=== PATIENT | female | born 1930 | race Caucasian/White ===

== ENCOUNTER 2017-07-31 02:52 | Emergency (ER) | payer MEDICARE ==
[2017-07-31 05:35] LABS: #Eosinphils 0.1 thou/uL (0.0-0.7); #Lymphocytes 0.6 thou/uL (1.20-3.40); #Monocytes 0.6 thou/uL (0.11-0.59); #Neutrophils 4.4 thou/uL (1.40-6.50); %Basophils 0.2 % (0.0-1.0); %Eosinophils 1.4 % (0.0-10.0); %Lymphocytes 10.8 % (21.0-51.0); %Monocytes 10.7 % (0.0-10.0); Hematocrit 36.7 % (36.0-47.0); Mean Platelet Volume 6.8 fL (7.4-10.4); Red Blood Cell (RBC) Count 4.06 mill/uL (4.20-5.40); White Blood Cell (WBC) Count 5.8 thou/uL (4.8-10.8)
[2017-07-31 05:51] LABS: Anion Gap 11 mmol/L (10-20); BUN (Urea Nitrogen) 15 mg/dL (9.8-20.1); Calc. Creatinine Clearance 0 mL/min (70-130); Calcium 8.6 mg/dL (7.8-10.44); Carbon Dioxide 21 mmol/L (23-31); Chloride 106 mmol/L (98-107); Estimated GFR-MDRD 60
--- NOTE | 2017-08-20 13:49 | EKG ---
Test Reason : SYNCOPE Blood Pressure : / mmHG Vent. Rate : 084 BPM Atrial Rate : 084 BPM P-R Int : 164 ms QRS Dur : 098 ms QT Int : 370 ms P-R-T Axes : 013 -22 057 degrees QTc Int : 437 ms Normal sinus rhythm Moderate voltage criteria for LVH, may be normal variant Borderline ECG Confirmed by JUSTIN CHUNG ([id number]), magazine editor HEATHER KEITA ([id number]) on 08/20/2017 1:48:58 PM Referred By: Confirmed By:JUSTIN CHUNG
== END 2017-07-31 06:10 | disposition home or self-care (01) ==
LOC: ERS 02:52
DX: R11.0 Nausea (principal); R19.7 Diarrhea, unspecified; I48.91 Unspecified atrial fibrillation; E03.9 Hypothyroidism, unspecified; K21.9 Gastro-esophageal reflux disease without esophagitis; I10 Essential (primary) hypertension; F41.9 Anxiety disorder, unspecified; F32.9 Major depressive disorder, single episode, unspecified; Z79.899 Other long term (current) drug therapy; Z79.82 Long term (current) use of aspirin
CPT/HCPCS: 36415; 80048; 85025; 93005

== ENCOUNTER 2018-03-25 09:53 | Observation (INO) | payer MEDICARE ==
[2018-03-25 10:24] LABS: #Lymphocytes 1.3 thou/uL (1.20-3.40); #Monocytes 0.4 thou/uL (0.11-0.59); #Neutrophils 4.3 thou/uL (1.40-6.50); %Basophils 0.5 % (0.0-1.0); %Eosinophils 0.3 % (0.0-10.0); %Lymphocytes 21.3 % (21.0-51.0); %Monocytes 7.3 % (0.0-10.0); %Neutrophils 70.6 % (42.0-75.0); Hemoglobin 11.6 g/dL (12.0-16.0); Mean Corpuscular HGB CONC 32.8 g/dL (32.0-36.0); Mean Corpuscular Hemoglobin 28.8 pg (27.0-31.0); Mean Corpuscular Volume 87.8 fL (78.0-98.0); Mean Platelet Volume 6.8 fL (7.4-10.4); Platelet Count 262 thou/uL (130-400); Red Blood Cell (RBC) Count 4.03 mill/uL (4.20-5.40)
[2018-03-25 10:44] LABS: ALT (SGPT) 7 U/L (8-55); AST (SGOT) 15 U/L (5-34); Alkaline Phosphatase 83 U/L (40-150); Anion Gap 16 mmol/L (10-20); BUN (Urea Nitrogen) 9 mg/dL (9.8-20.1); Bilirubin, Total 0.6 mg/dL (0.2-1.2); Calc. Creatinine Clearance 0 mL/min (70-130); Calcium 9.7 mg/dL (7.8-10.44); Carbon Dioxide 22 mmol/L (23-31); Chloride 106 mmol/L (98-107); Estimated GFR-MDRD 64; Globulin 3.3 g/dL (2.4-3.5); Glucose 112 mg/dL (83-110); Potassium 3.5 mmol/L (3.5-5.1); Protein, Total 7.3 g/dL (6.0-8.3); Sodium 140 mmol/L (136-145)
--- NOTE | 2018-03-25 10:46 | RAD ---
RADIOGRAPH CHEST 1 VIEW: HISTORY: 87-year-old female with hypertension. FINDINGS: There are no air space densities, pulmonary edema, pneumothorax, or cardiomegaly. The lateral costop hrenic angles are sharp. There is a cluster of surgical clips at the left medial cervicothoracic junction. Thin layer of calci fication over the left hemidiaphragm. IMPRESSION: No acute cardiopulmonary findings. andria [] POS: KORIN
[2018-03-25 10:48] LABS: CKMB 0.7 ng/mL (0-6.6); Troponin I Less than 0.010 ng/mL (< 0.028)
[2018-03-25] MEDS ORDERED: Acetaminophen 325 MG TAB PO PRN (13:36)
[2018-03-25] MEDS ORDERED: Eucerin (Mineral Oil/Petrolatum,White) 30 gm Jar TOP PRN (13:36)
[2018-03-25] MEDS ORDERED: Artificial Tear Sol 15 ML BOT EA EYE PRN (13:36)
[2018-03-25] MEDS ORDERED: Senokot 8.6 MG TAB PO PRN (13:36)
[2018-03-25] MEDS ORDERED: Diabetic Tussin 200 MG/10 ML UDCUP PO PRN (13:36)
[2018-03-25] MEDS ORDERED: Milk Of Magnesia 30 ML UDCUP PO PRN (13:36)
[2018-03-25] MEDS ORDERED: Sodium Chloride 0.65% Nasal 44 ML BOT EA NARE PRN (13:36)
[2018-03-25] MEDS ORDERED: hydrALAZINE 20 MG/ML VIAL SLOW IVP PRN (13:36)
[2018-03-25] MEDS ORDERED: Loratadine 10 MG TAB PO PRN (13:36)
[2018-03-25] MEDS ORDERED: Ondansetron HCl/PF 4 MG/2 ML Vial IVP PRN (13:36)
[2018-03-25] MEDS ORDERED: HYDROcodone/Acetaminophen 5/325 mg Tablet PO PRN (13:36)
[2018-03-25] MEDS ORDERED: Ondansetron ODT 4 MG TAB PO PRN (13:36)
[2018-03-25] MEDS ORDERED: Zolpidem Tartrate 5 MG TAB PO PRN (13:36)
[2018-03-25] MEDS ORDERED: Chloraseptic Spray 180 ml Bottle PO PRN (13:36)
[2018-03-25] MEDS ORDERED: Mag-Al 1200 mg/1200 mg/30 ML UDCUP PO PRN (13:36)
[2018-03-25] MEDS ORDERED: Nitroglycerin 0.4 MG TAB (25 Tab Bottle) SL PRN (13:36)
[2018-03-25] MEDS ORDERED: Loperamide HCl 2 MG CAP PO PRN (13:36)
[2018-03-25] MEDS ORDERED: ALPRAZolam 0.25 MG TAB PO PRN (13:55)
[2018-03-25] MEDS ORDERED: NIFEdipine XL 30 MG TAB PO SCH (14:00)
--- NOTE | 2018-03-25 14:31 | HP ---
PRIMARY CARE PHYSICIAN: [facility] call admission. REASON FOR ADMISSION: Chest pain and hypertensive urgency. HISTORY OF PRESENT ILLNESS: This is an 87-year-old female, who has underlying history of hypertensio n, GERD, hypothyroidism, coronary artery disease, who lives alone at home. The patient was checking her blood pressure at home yesterday, which was very high. Last night, the patient's blood pressure was running in 200s. She took amlodipine and aspirin and after that she slept. This morning, when s he woke up, at that time her blood pressure was still very high. She took another couple of the baby aspirin and amlodipine, but that was not dropping her blood pressure and she was feeling chest press ure. She called her primary care physician, who advised her to go to emergency room for checkout. I n the emergency room when she presented, at that time her blood pressure was 174/73. She was chest p ain free. Her routine workup in the emergency room was unremarkable including CBC, BMP, and chest x- ray. Patient reports that she had negative cardiac stress test in 12/2017. Patient had, 20 years ag o, cardiac catheterization and 3 stents placed in [place] by her communications equipment operator. The patient was recen tly followed up with primary care physician as well as her communications equipment operator and everything was fine. Precious coburn's blood pressure was lately running high. Patient reports that she is also anxious and she took anxiety medicine that did not change her blood pressure. She denies any associated diaphoresis, but she was feeling nausea and headache. She denies any focal motor or sensory symptoms. She was feeli ng headache with high blood pressure. She denies any UTI symptoms. She denies any constipation, les rrhea, melena, or hematochezia. REVIEW OF SYSTEMS: The following complete review of systems was negative, unless otherwise mentioned in the HPI or below: Constitutional: Weight loss or gain, ability to conduct usual activities. Sk in: Rash, itching. Eyes: Double vision, pain. ENT/Mouth: Nose bleeding, neck stiffness, pain, te nderness. Cardiovascular: Palpitations, dyspnea on exertion, orthopnea. Respiratory: Shortness of breath, wheezing, cough, hemoptysis, fever, or night sweats. Gastrointestinal: Poor appetite, abdo rogers pain, heartburn, nausea, vomiting, constipation, or diarrhea. Genitourinary: Urgency, frequen cy, dysuria, nocturia. Musculoskeletal: Pain, swelling. Neurologic/Psychiatric: Anxiety, depressi on. Allergy/Immunologic: Skin rash, bleeding tendency. Please see my HPI for pertinent positive an d negative. All other review of system reviewed and negative except as mentioned in the HPI. PAST MEDICAL HISTORY: Coronary artery disease with stent; hypertension; dyslipidemia; hypothyroidism ; gastroesophageal reflux disease; history of bladder cancer, treated with surgery. PAST SURGICAL HISTORY: Throat surgery after injury, hysterectomy, left leg surgery, bladder surgery x3, tonsillectomy. PAST PSYCHIATRIC HISTORY: Anxiety and depression. SOCIAL HISTORY: Patient lives alone by herself in [place], [place]. No history of tobacco, alcohol , or illicit drug abuse. FAMILY HISTORY: No strong family history of premature coronary artery disease, stroke, or cancer. EMERGENCY ROOM COURSE: The patient is given aspirin 325 mg. ALLERGIES: IODINE, SULFA, MILK PRODUCT. CURRENT HOME MEDICATIONS: Toprol-XL 12.5 mg twice daily, omeprazole 20 mg p.o. daily, Synthroid 50 m cg p.o. daily, aspirin 81 mg p.o. daily, Xanax 0.5 mg as needed, Bentyl 10 mg q.8 hourly p.r.n., Zofr an 4 mg q.6 hourly p.r.n., amlodipine 5 mg p.o. daily. PHYSICAL EXAMINATION: VITAL SIGNS: Blood pressure currently 163/92, pulse 69, respiratory rate 17, temperature 97.8, satur ation 98% on room air, weight is 63.9 kilograms. GENERAL: Patient is currently alert, oriented, in no acute distress. HEENT: Head: Normocephalic, atraumatic. Eyes: Pupils round, reactive to light. Extraocular muscl e intact. ENT: Oropharynx within normal limits. Moist mucous membranes. No oral lesion, no pharyn geal erythema, no exudate. NECK: Supple, no JVD, no thyromegaly, no carotid bruit, no jugular venous distention. LUNGS: Clear to auscultation without any rhonchi or rales. CARDIAC: S1 and S2, regular. No murmur, no gallop, no rub. ABDOMEN: Soft, bowel sounds present, nontender, nondistended. No organomegaly, no mass, no suprapub ic tenderness. BACK EXAMINATION: Unremarkable, no CVA tenderness. EXTREMITIES: Upper extremities, passive movement of all joints are normal. Lower extremities: No e berna. Good peripheral pulsation. SKIN: No skin rash. HEMATOLOGICAL SYSTEM: No lymphadenopathy. PSYCHIATRIC: Normal affect. NEUROLOGIC: Nonfocal examination. SIGNIFICANT LABORATORY DATA: CBC: WBC 6.0, hemoglobin 11.6, platelets 262. BMP: Sodium 140, potas sium 3.5, chloride 106, carbon dioxide 22, anion gap 16, BUN 9, creatinine 0.84, glucose 112, calcium 9.7. LFT: AST 15, ALT 7, alkaline phosphatase is 83, albumin 4.0. BNP is 36.3. Cardiac enzymes n egative. Chest x-ray, based on my review, no acute cardiopulmonary process. EKG, based on my review , normal sinus rhythm, LVH. ASSESSMENT AND PLAN: 1. Chest pressure, rule out acute coronary syndrome. The patient will be observed on telemetry floo r. We will do serial cardiac enzymes x3. She had negative stress test per patient in 12/2017 and dewayne johnson is not interested in going for another stress test. If her cardiac enzymes remain negative, then yasir johnson will consider discharging her home tomorrow. Most likely, chest pressure is explained by her uncon trolled hypertension or gastroesophageal reflux disease. We will continue with Protonix 40 mg p.o. d aily. 2. Hypertension, uncontrolled. We will change amlodipine to Procardia-XL 30 mg p.o. daily and we wi ll monitor blood pressure more frequently. We will continue metoprolol XL 25 mg p.o. daily. 3. Gastroesophageal reflux disease. We will continue Protonix 40 mg p.o. daily. 4. Hypothyroidism. We will continue Synthroid 50 mcg p.o. daily. 5. Anxiety and depression. We will use Xanax 0.25 mg p.o. q.i.d. p.r.n. 6. Deep venous thrombosis prophylaxis not needed. 7. Gastrointestinal prophylaxis, Protonix 40 mg p.o. daily. CODE STATUS: The patient is FULL CODE. Patient's daughter is surrogate decision maker. DISPOSITION PLAN: Within 24 hours, likely tomorrow.
[2018-03-25] MEDS: Nitroglycerin 2% Ointment 1 INCH/1 GM Packet TOP SCH (14:43)
[2018-03-25 17:54] LABS: Troponin I Less than 0.010 ng/mL (< 0.028)
[2018-03-25 20:36] LABS: Troponin I Less than 0.010 ng/mL (< 0.028)
[2018-03-25] MEDS ORDERED: Famotidine 20 MG TAB PO SCH (21:00)
[2018-03-26] MEDS: Nitroglycerin 2% Ointment 1 INCH/1 GM Packet TOP SCH ×2 (03:02→06:38)
[2018-03-26 05:41] LABS: Cardiac Risk 3.3 (Less than 4.5)
[2018-03-26] MEDS ORDERED: Levothyroxine Sodium 50 MCG TAB PO SCH (06:00)
[2018-03-26 07:51] VITALS: BP 142/68; TEMP 97.7
[2018-03-26] MEDS ORDERED: Aspirin 325 MG TAB PO SCH (09:00)
[2018-03-26] MEDS ORDERED: Pantoprazole 40 MG GRANULES PACKET PO SCH (09:00)
--- NOTE | 2018-03-26 11:00 | DIS ---
DATE OF ADMISSION: 03/25/2018 DATE OF DISCHARGE: 03/26/2018 PRIMARY CARE PHYSICIAN: [facility] call admission. Her primary care physician in [place], [place]. DISCHARGE DISPOSITION: Home. PRIMARY DISCHARGE DIAGNOSES: Chest pain, ruled out acute coronary syndrome, likely due to anxiety. SECONDARY DISCHARGE DIAGNOSES: Hypothyroidism, hypertension, gastroesophageal reflux disease, dyslip idemia, coronary artery disease, anxiety and depression, normocytic normochromic anemia. PRIMARY PROCEDURES AND OPERATIONS: None. RADIOLOGICAL INVESTIGATION: Chest x-ray normal. SIGNIFICANT LABORATORY DATA: WBC 6.0, hemoglobin 11.6, platelet 262. Sodium 140, potassium 3.5, BUN 9, creatinine 0.84, calcium 9.7. LFT normal. Cardiac enzymes negative x3. BNP 36.3. LDL 135. DISCHARGE MEDICATIONS: Xanax 0.5 mg p.o. t.i.d. p.r.n., amlodipine 2.5 mg p.o. daily, enalapril 20 m g p.o. at bedtime, Synthroid 50 mcg p.o. daily, Toprol-XL 25 mg p.o. at bedtime, omeprazole 20 mg p.o . daily, Lipitor 10 mg p.o. at bedtime. CONTRAINDICATIONS: None. CODE STATUS: FULL CODE. INPATIENT RETAIL MERCHANDISER: None. ALLERGIES: IODINE, SULFA. DISCHARGE PLAN: Post hospital, the patient will follow up with primary care physician in 1 week. HOSPITAL COURSE: An 87-year-old female with above-mentioned medical problem who was admitted in hosp [facility] yesterday by me. Please see my HPI for further detail. This patient was having difficulty cont rolling blood pressure at home. She was having high blood pressure at home and she was taking extra doses of blood pressure medication and with high blood pressure, she was experiencing chest pressure without any significant radiation, associated with nausea and headache. This patient's examination w as completely normal. Her chest x-ray was normal. Her routine blood test was also unremarkable. Kevin johnson was observed on telemetry floor. She had negative stress test done in December of this year. With cont rolling blood pressure, she did not have any further chest pain. Her telemetry remained unremarkable . During this admission, we did not make any change in her medication regarding her blood pressure, because her anxiety was precipitating her high blood pressure and that is why we necessarily provided the patient education about how to cope with anxiety and how to manage the blood pressure. We did n ot pursue any further stress test during this admission as she had recently with her mascara molder and the patient was also not interested in going for repeat stress test. Her LDL was high and that is w hy we prescribed Lipitor upon discharge. The rest of medication was continued as per previous. The patient is seen and examined at bedside today. All review of system reviewed with her and negati ve. PHYSICAL EXAMINATION: VITAL SIGNS: Today, temperature 97.7, pulse 73, respiratory rate 16, saturation 98% on room air, blo od pressure 142/68, weight 136 pounds. GENERAL: The patient is currently alert, awake, no acute distress. HEAD: Normocephalic, atraumatic. EYES: Pupils round, reactive to light. Extraocular muscle intact. ENT: Oropharynx within normal limits. LUNGS: Clear. CARDIAC: S1, S2 regular without any murmur. ABDOMEN: Soft and benign. EXTREMITIES: No edema. NEUROLOGIC: Nonfocal examination.
== END 2018-03-26 10:11 | disposition home or self-care (01) ==
LOC: ERS 09:53 → 2SW 12:10
PROVIDERS: ADMIT Internal Medicine; ATTEND Internal Medicine
DX: R07.9 Chest pain, unspecified (principal); I16.0 Hypertensive urgency; E03.9 Hypothyroidism, unspecified; K21.9 Gastro-esophageal reflux disease without esophagitis; E78.5 Hyperlipidemia, unspecified; I25.10 Atherosclerotic heart disease of native coronary artery without angina pectoris; D64.9 Anemia, unspecified; Z88.2 Allergy status to sulfonamides; Z91.041 Radiographic dye allergy status; Z79.82 Long term (current) use of aspirin; Z79.02 Long term (current) use of antithrombotics/antiplatelets; Z79.899 Other long term (current) drug therapy
CPT/HCPCS: 71045; 80053; 80061; 82553; 83880; 84484 ×2; 85025; 93005; 99285; G0378; 36415